=== PATIENT | female | born 1990 | race Caucasian/White ===

== ENCOUNTER 2016-06-14 22:21 | Inpatient (IN) | payer OTHER ==
[~2016-06-14] VITALS: Ht 157.5 cm; Wt 82.7 kg
[2016-06-14] MEDS ORDERED: IV NORMAL SALINE 1000ML BAG 1,000 ML IV SCH (22:45)
[2016-06-14] MEDS ORDERED: METOCLOPRAMIDE HCL 10 MG/2 ML VIAL. IV ONE (23:45)
[2016-06-14] MEDS ORDERED: MORPHINE SULFATE 4 MG/ML DISP.SYRIN. IV ONE (23:45)
[2016-06-14] MEDS ORDERED: FAMOTIDINE 20 MG/2 ML VIAL IVP ONE (23:45)
[2016-06-14 23:50] LABS: BASO # 0.1 x10^3/uL (0.0-0.2); BASO % 1 % (0-3); EOS % 1 % (0-3); HEMATOCRIT 39.6 % (36.0-47.0); HEMOGLOBIN 13.3 g/dL (12.0-15.5); LYMPH # 4.3 x10^3/uL (1.0-4.8); LYMPH % 30 % (24-48); MEAN CORPUSCULAR HEMOGLOBIN 29 pg (25-35); MEAN CORPUSCULAR HGB CONC 34 g/dL (31-37); MEAN CORPUSCULAR VOLUME 88 fL (79-100); MONO % 7 % (0-9); NEUT % 62 % (31-73); PLATELET COUNT 276 x10^3/uL (140-400); RED BLOOD COUNT 4.52 x10^6/uL (3.50-5.40); WHITE BLOOD COUNT 14.6 x10^3/uL (4.0-11.0)
[2016-06-14 23:58] LABS: CALCIUM 9.2 mg/dL (8.5-10.1); CREATININE 0.7 mg/dL (0.6-1.0); GFR 100.4; POTASSIUM 3.5 mmol/L (3.5-5.1)
[2016-06-15 00:04] LABS: ALBUMIN/GLOBULIN RATIO 1.3 (1.0-1.7); TOTAL BILIRUBIN 0.2 mg/dL (0.2-1.0); TOTAL PROTEIN 7.1 g/dL (6.4-8.2)
[2016-06-15] MEDS ORDERED: IOHEXOL 240 MG/ML 50ML VIAL. PO ONE (00:15)
[2016-06-15] MEDS ORDERED: IOHEXOL 300 MG/ML 75 ML VIAL IV ONE (00:15)
[2016-06-15] MEDS ORDERED: CONTRAST GIVEN MC PRN (00:15)
[2016-06-15 01:33] LABS: BILIRUBIN,URINE NEGATIVE (NEG); GLUCOSE,URINE NEGATIVE (NEG); NITRITE,URINE NEGATIVE (NEG); PH,URINE 7.5; PROTEIN,URINE NEGATIVE (NEG-TRACE)
--- NOTE | 2016-06-15 01:39 | RAD ---
CT abdomen and pelvis with contrast: Reason for examination: Generalized abdominal pain with nausea and vomiting. Helical images were obtained through the abdomen and pelvis with intravenous administration of 75 cc Omnipaque 300 and oral contrast. Reconstruction was performed in sagittal and coronal planes. Exposure: One or more of the following individualized dose reduction techniques were used for this examination: 1. Automated exposure control. 2. Adjustment of the mA and/or kV according to patient size. 3. Use of iterative reconstruction technique. The lung bases are clear. The heart size is normal with no pericardial effusion seen. No abnormalities seen in the liver, gallbladder, spleen, adrenal glands or pancreas. The abdominal aorta and inferior vena cava show no acute abnormalities. No abnormalities seen in the appendix. There is a large amount of fecal material in the right colon there is large amount of air in the sigmoid colon. The small intestinal tract shows some gaseous distension proximally without wall thickening. Distally the small intestinal tract is not distended. The kidneys show no renal masses, renal calculi, hydronephrosis or evidence of obstructive uropathy. There does appear to be a left renal vein stent present. No abnormalities seen in the bladder or vaginal cuff. No acute bony abnormalities evident. Impression: Gaseous distention in the proximal small intestinal tract without wall thickening or evidence of obstruction. No other focal abnormalities evident in the abdomen or pelvis. Electronically signed by: Roxy Segovia MD (Jun 15, 2016 01:37:43)
[2016-06-15 01:40] LABS: BACTERIA,URINE 0 /HPF (0-FEW); RBC,URINE TNTC /HPF (0-2); SQUAMOUS EPITHELIAL CELL,UR FEW /LPF
[2016-06-15] MEDS ORDERED: MORPHINE SULFATE 4 MG/ML DISP.SYRIN. IV ONE (01:45)
--- NOTE | 2016-06-15 02:09 | PHYS DOC ---
Past Medical History Past Medical History: Anxiety, Arthritis, Depression, Fibromyalgia, Migraines Additional Past Medical Histor: NUTCRACKER SYNDROME,FIBROMYLAGIA ADHD.DDD, KIDNEY LESION,RA Past Surgical History: Hysterectomy Additional Past Surgical Histo: NEUROPATHY,DIARRHEA,LIVER DISEASE Alcohol Use: None Drug Use: None Adult General Chief Complaint Chief Complaint: ABDOMINAL PAIN HPI HPI Patient is a 25 year old female who presents with multiple complaints. Patient reports that starting this morning she has had generalized abdominal pain. No clear inciting or mitigating factors. Pain is accompanied by nausea and vomiting , which she has had for the past 2 weeks intermittently. She does report some hematemesis today. She has some aching in her lower back. Lastly, has complaint of multiple small skin lesions that she has had off-and-on since November. These are getting worse. She spoke with her primary care physician cecy, was told to come to the emergency department for evaluation. Review of Systems Review of Systems Constitutional: Denies fever or chills Eyes: Denies change in visual acuity or eye pain HENT: Denies nasal congestion or sore throat Respiratory: Denies cough or shortness of breath Cardiovascular: Denies chest pain GI: General abdominal pain, nausea, vomiting, hematemesis. Denies bloody stools or diarrhea : Denies dysuria or hematuria Musculoskeletal: Low back ache. Integument: Scattered skin lesions Neurologic: Denies headache, focal weakness or sensory changes Current Medications Current Medications Current Medications Medications (Trade) Dose Ordered Sig/Miracle Start Time Stop Time Status Last Admin Dose Admin Famotidine (Pepcid) 20 mg 1X ONCE 06/14/16 23:45 06/14/16 23:46 DC 06/15/16 00:10 20 MG Info (Do NOT chart on this entry -- for MONITORING) 1 each PRN DAILY PRN 06/15/16 00:15 06/17/16 00:14 Iohexol (Omnipaque 240 Mg/ml) 30 ml 1X ONCE 06/15/16 00:15 06/15/16 00:16 DC 06/15/16 00:57 30 ML Iohexol (Omnipaque 300 Mg/ml) 75 ml 1X ONCE 06/15/16 00:15 06/15/16 00:16 DC 06/15/16 00:56 75 ML Metoclopramide HCl (Reglan) 10 mg 1X ONCE 06/14/16 23:45 06/14/16 23:46 DC 06/15/16 00:10 10 MG Morphine Sulfate 4 mg 1X ONCE 06/15/16 01:45 06/15/16 01:46 DC 06/15/16 01:55 4 MG Sodium Chloride (Iv Sodium Chloride 0.9% 1000ml Bag) 1,000 ml @ 1,000 mls/hr Q1H 06/14/16 22:45 06/14/16 23:45 DC 06/14/16 00:08 1,000 MLS/HR Allergies Allergies Allergies Coded Allergies Type Severity Reaction Last Updated Verified diphenhydramine Allergy Severe SHAKES 09/06/15 Yes prochlorperazine Allergy Severe SHAKES 09/06/15 Yes Physical Exam Physical Exam Constitutional: Well developed, well nourished, no acute distress, non-toxic appearance HENT: Normocephalic, atraumatic, bilateral external ears normal Eyes: EOMI, conjunctiva normal, no discharge Neck: Normal range of motion, no stridor Cardiovascular: Tachycardic, regular rhythm, no murmur Lungs & Thorax: Bilateral breath sounds clear to auscultation Abdomen: Bowel sounds normal, soft, non-distended, mild general TTP without guarding or rebound Skin: Warm, dry. Many scattered punctate wounds most prominent on extremities; no discharge noted Back: No tenderness, no deformity or skin lesion Extremities: No obvious deformity, no edema Neurologic: Alert and oriented X 3, no gross deficits noted Psychologic: Tearful, anxious Current Patient Data Vital Signs Vital Signs Date Time Temp Pulse Resp B/P Pulse Ox O2 Delivery O2 Flow Rate FiO2 06/15/16 01:29 88 18 122/58 94 Room Air 06/14/16 22:32 98.4 98.4 Lab Values Laboratory Tests Test 06/14/16 23:15 06/15/16 01:27 06/15/16 02:00 White Blood Count 14.6x10^3/uL (4.0-11.0) H Red Blood Count 4.52x10^6/uL (3.50-5.40) Hemoglobin 13.3g/dL (12.0-15.5) Hematocrit 39.6% (36.0-47.0) Mean Corpuscular Volume 88fL (79-100) Mean Corpuscular Hemoglobin 29pg (25-35) Mean Corpuscular Hemoglobin Concent 34g/dL (31-37) Red Cell Distribution Width 13.0% (11.5-14.5) Platelet Count 276x10^3/uL (140-400) Neutrophils (%) (Auto) 62% (31-73) Lymphocytes (%) (Auto) 30% (24-48) Monocytes (%) (Auto) 7% (0-9) Eosinophils (%) (Auto) 1% (0-3) Basophils (%) (Auto) 1% (0-3) Neutrophils # (Auto) 9.1x10^3uL (1.8-7.7) H Lymphocytes # (Auto) 4.3x10^3/uL (1.0-4.8) Monocytes # (Auto) 1.0x10^3/uL (0.0-1.1) Eosinophils # (Auto) 0.1x10^3/uL (0.0-0.7) Basophils # (Auto) 0.1x10^3/uL (0.0-0.2) Sodium Level 141mmol/L (136-145) Potassium Level 3.5mmol/L (3.5-5.1) Chloride Level 105mmol/L (98-107) Carbon Dioxide Level 27mmol/L (21-32) Anion Gap 9 (6-14) Blood Urea Nitrogen 11mg/dL (7-20) Creatinine 0.7mg/dL (0.6-1.0) Estimated GFR (Cockcroft-Gault) 100.4 BUN/Creatinine Ratio 16 (6-20) Glucose Level 97mg/dL (70-99) Calcium Level 9.2mg/dL (8.5-10.1) Total Bilirubin 0.2mg/dL (0.2-1.0) Aspartate Amino Transferase (AST) 24U/L (15-37) Alanine Aminotransferase (ALT) 26U/L (14-59) Alkaline Phosphatase 64U/L (46-116) Total Protein 7.1g/dL (6.4-8.2) Albumin 4.0g/dL (3.4-5.0) Albumin/Globulin Ratio 1.3 (1.0-1.7) Lipase 95U/L (73-393) Urine Collection Type Unknown Urine Color Yellow Urine Clarity Cloudy Urine pH 7.5 Urine Specific [place] 1.025 Urine Protein Negativemg/dL (NEG-TRACE) Urine Glucose (UA) Negativemg/dL (NEG) Urine Ketones (Stick) Negativemg/dL (NEG) Urine Blood Large (NEG) Urine Nitrite Negative (NEG) Urine Bilirubin Negative (NEG) Urine Urobilinogen Dipstick 1.0mg/dL (0.2 mg/dL) Urine Leukocyte Esterase Small (NEG) Urine RBC Tntc/HPF (0-2) Urine WBC 5-10/HPF (0-4) Urine Squamous Epithelial Cells Few/LPF Urine Amorphous Sediment Present/HPF Urine Bacteria 0/HPF (0-FEW) Urine Mucus Slight/LPF Lactic Acid Level 0.3mmol/L (0.4-2.0) L Laboratory Tests 06/14/16 23:15 Laboratory Tests 06/14/16 23:15 EKG EKG [] Radiology/Procedures Radiology/Procedures CT A/P: Impression: Gaseous distention in the proximal small intestinal tract without wall thickening or evidence of obstruction. No other focal abnormalities evident in the abdomen or pelvis. Course & Med Decision Making Course & Med Decision Making Pertinent Labs and Imaging studies reviewed. (See chart for details) Patient is 25-year-old female who presents with multiple complaints. Will obtain CT abdomen/pelvis, labs, UA to evaluate. IV fluids, pain meds, nausea meds ordered for relief of symptoms. I'm concerned about the possibility of infection from patient's multiple small scattered wounds. Imaging results as above. Labs notable for leukocytosis. Given this and tachycardia, we will give IV antibiotics. Discussed results with patient. Will admit under the care of Dr. Carter for further evaluation and treatment. Dragon Disclaimer Dragon Disclaimer This electronic medical record was generated, in whole or in part, using a voice recognition dictation system. Departure Departure Impression: Primary Impression: Wounds, multiple Additional Impressions: Abdominal pain Leukocytosis Disposition: ADMITTED INPATIENT Admitting Physician: Shasta Carter Condition: STABLE Referrals: YURI VARGAS MD (PCP) Problem Qualifiers ROLY WANG MD Jun 15, 2016 02:09
[2016-06-15] MEDS ORDERED: ACETAMINOPHEN 325 MG TABLET. PO PRN (02:15)
[2016-06-15] MEDS ORDERED: ONDANSETRON PF 4 MG/2 ML VIAL. IV PRN (02:15)
[2016-06-15] MEDS ORDERED: VANCOMYCIN 2 GM in IV NORMAL SALINE 500ML BAG 500 ML IV ONE (02:30)
[2016-06-15] MEDS ORDERED: VANCOMYCIN PER PHARMACY MC PRN (02:30)
[2016-06-15 03:10] VITALS: BP 113/72
[2016-06-15] MEDS: MORPHINE SULFATE 4 MG/ML DISP.SYRIN. IV PRN ×2 (05:06→14:10)
[2016-06-15] MEDS ORDERED: ZOLP10TA4 PO (05:55)
[2016-06-15] MEDS ORDERED: DEXT10TA23 PO (05:55)
[2016-06-15] MEDS ORDERED: ALPR1TAB6 PO (05:55)
[2016-06-15] MEDS ORDERED: ONDA4TAB12 PO (05:55)
[2016-06-15] MEDS ORDERED: TRAM50TA PO (05:55)
[2016-06-15] MEDS ORDERED: HYDR-2672 PO (05:55)
[2016-06-15] MEDS ORDERED: PREG150C PO (05:55)
[2016-06-15] MEDS ORDERED: FLUO20CA8 PO (05:55)
[2016-06-15] MEDS ORDERED: PROVENTIL HFA6.7 GM IH (05:55)
[2016-06-15] MEDS ORDERED: TRAZ100T12 PO (05:55)
[2016-06-15 07:00] VITALS: BP 105/70
[2016-06-15] MEDS: IV NORMAL SALINE 1000ML BAG 1,000 ML IV SCH ×3 (09:30→22:24)
--- NOTE | 2016-06-15 09:35 | PDOC1 ---
History and Physical Date of Admission Date of Admission DATE: 06/15/16 TIME: 09:25 History of Present Illness History of Present Illness Ms. Campuzano, is a 25 year old female, I was told admitted for skin rash./ Her asks why we aren;t addressing the vomiting of blood X2 and Abdominal pain.. She is lethargic and tired, arouseable, but wanted him to provide history. Skin rash has worsened, mult pustular lesions that appear extensive acneiform on the face, but extensive crusted lesions on lateral thighs, R>L, and painful, some skin lesions for months, but markedly worse Abd pain for 2 weeks, pain 7/10, some vomiting, has vomited blood X2, yesterday Past Medical History GI: GERD Hepatobiliary: Other (fatty liver) Psych: Anxiety Musculoskeletal: low back pain, Osteoarthritis, Other (DJD) Rheumatologic: Fibromyalgia Renal/: Acute renal failure ( W/ Left renal vein stent) Endocrine: No pertinent hx Dermatology: Rash Family History Family History: Family History Unknown Social History Smoke: No ALCOHOL: none Drugs: None Current Problem List Problem List Problems Medical Problems: (1) Abdominal pain Status: Acute (2) Leukocytosis Status: Acute (3) Leukocytosis Status: Acute (4) Multiple wounds of skin Status: Acute (5) Wounds, multiple Status: Acute Problems: Current Medications Current Medications Current Medications Sodium Chloride (Iv Sodium Chloride 0.9% 1000ml Bag) 1,000 ml @ 1,000 mls/hr Q1H IV Last administered on 06/14/16 00:08; Start 06/14/16 at 22:45; Stop at 23:45; Status DC Famotidine (Pepcid) 20 mg 1X ONCE IVP Last administered on 06/15/16 00:10; Start 06/14/16 at 23:45; Stop 06/14/16 at 23:46; Status DC Metoclopramide HCl (Reglan) 10 mg 1X ONCE IV Last administered on 06/15/16 00 :10; Start 06/14/16 at 23:45; Stop 06/14/16 at 23:46; Status DC Morphine Sulfate 4 mg 1X ONCE IV Last administered on 06/15/16 00:09; Start 06/14/16 at 23:45; Stop 06/14/16 at 23:46; Status DC Iohexol (Omnipaque 240 Mg/ml) 30 ml 1X ONCE PO Last administered on 06/15/16 00:57; Start 06/15/16 at 00:15; Stop 06/15/16 at 00:16; Status DC Iohexol (Omnipaque 300 Mg/ml) 75 ml 1X ONCE IV Last administered on 06/15/16 00:56; Start 06/15/16 at 00:15; Stop 06/15/16 at 00:16; Status DC Info (Do NOT chart on this entry -- for MONITORING) 1 each PRN DAILY PRN MC SEE COMMENTS; Start 06/15/16 at 00:15; Stop 06/17/16 at 00:14 Morphine Sulfate 4 mg 1X ONCE IV Last administered on 06/15/16 01:55; Start 06/15/16 at 01:45; Stop 06/15/16 at 01:46; Status DC Vancomycin HCl (Vanco Per Pharmacy) 1 each PRN DAILY PRN MC SEE COMMENTS Last administered on 06/15/16 03:36; Start 06/15/16 at 02:30 Ondansetron HCl (Zofran) 4 mg PRN Q8HRS PRN IV NAUSEA/VOMITING; Start 06/15/16 at 02:15; Stop 06/16/16 at 02:14 Morphine Sulfate 4 mg PRN Q2HR PRN IV PAIN Last administered on 06/15/16 05:06 ; Start 06/15/16 at 02:15; Stop 06/16/16 at 02:14 Acetaminophen 650 mg 650 mg PRN Q4HRS PRN PO FEVER; Start 06/15/16 at 02:15; Stop 06/16/16 at 02:14 Vancomycin HCl 2 gm/Sodium Chloride 500 ml @ 250 mls/hr 1X ONCE IV Last administered on 06/15/16 02:15; Start 06/15/16 at 02:30; Stop 06/15/16 at 04:29 ; Status DC Vancomycin HCl/ Sodium Chloride (Iv Sodium Chloride 0.9% 250ml) 250 ml @ 167 mls/hr Q8H IV ; Start 06/15/16 at 12:00 Vancomycin HCl 1 each 1X ONCE MC ; Start 06/16/16 at 03:30; Stop 06/16/16 at 03 :31 Alprazolam (Xanax) 1 mg BID PO ; Start 06/15/16 at 10:00 Fluoxetine HCl (Prozac) 20 mg DAILY PO ; Start 06/15/16 at 10:00 Acetaminophen/ Hydrocodone Bitart (Lortab 10/325) 1 tab PRN Q6HRS PRN PO PAIN MILD TO MOD; Start 06/15/16 at 09:15 Ondansetron HCl (Zofran Odt) 4 mg Q8HRS PRN PO nausea 1ST CHOICE; Start at 09:15 Tramadol HCl (Ultram) 50 mg PRN Q6HRS PRN PO pain; Start 06/15/16 at 09:15 Trazodone HCl (Desyrel) 100 mg QHS PO ; Start 06/15/16 at 21:00 Non-Formulary Medication 1 puff PRN Q4HRS PRN IH WHEEZING; Start 06/15/16 at 09 :15; Status UNV Non-Formulary Medication 10 mg DAILY PO ; Start 06/16/16 at 09:00; Status UNV Pregabalin (Lyrica) 150 mg BID PO ; Start 06/15/16 at 10:00 Zolpidem Tartrate 5 mg 5 mg PRN QHS PRN PO INSOMNIA; Start 06/15/16 at 09:30 Pantoprazole Sodium/Sodium Chloride (Protonix Iv/Iv Sodium Chloride 0.9% 100ml) 100 ml @ 10 mls/hr Q10H IV ; Start 06/15/16 at 09:30; Status UNV Active Scripts Active Reported Zolpidem Tartrate 10 Mg Tablet 1 Tab PO QHS Trazodone Hcl 100 Mg Tablet 1 Tab PO QHS Tramadol Hcl 50 Mg Tablet 1 Tab PO PRN Q6HRS Adderall 10 Mg Tablet (Dextroamphetamine/Amphetamine) 10 Mg Tablet 10 Mg PO DAILY Ondansetron Odt (Ondansetron) 4 Mg Tab.rapdis 1 Tab PO PRN Q6-8HRS Lyrica (Pregabalin) 150 Mg Capsule 1 Cap PO BID Hydrocodone-Apap 10-325 (Hydrocodone Bit/Acetaminophen) 1 Each Tablet 1 Tab PO PRN Q6HRS PRN Fluoxetine Hcl 20 Mg Capsule 1 Cap PO DAILY Alprazolam 1 Mg Tablet 1 Tab PO BID Proventil Hfa Inhaler (Albuterol Sulfate) 6.7 Gm Hfa.aer.ad 1 Puff IH PRN Q4HRS PRN Allergies Allergies: Coded Allergies: diphenhydramine (Verified Adverse Reaction, Intermediate, SHAKES, 06/15/16) prochlorperazine (Verified Adverse Reaction, Intermediate, SHAKES, 06/15/16 ) ROS General: YES: Appetite, Fatigue, Malaise, No: Chills, Night Sweats, Other PSYCHOLOGICAL ROS: YES: Anxiety, No: Behavioral Disorder, Concentration difficultie, Decreased libido, Depression, Disorientation, Hallucinations, Hostility, Irritablity, Memory difficulties, Mood Swings, Obsessive thoughts, Other, Physical abuse, Sexual abuse, Sleep disturbances, Suicidal ideation Eyes: No Blurry vision, No Decreased vision, No Double vision, No Dry eyes, No Excessive tearing, No Eye Pain, No Itchy Eyes, No Loss of vision, No Other, No Photophobia, No Scotomata, No Uses contacts, No Uses glasses HEENT: YES: Heacaches Respiratory: No: Cough, Hemoptysis, Orthopnea, Other, Pleuritic Pain, SOB with excertion, Shortness of breath, Sputum Changes, Stridor, Tachypnea, Wheezing Cardiovascular: No Chest Pain, No Edema, No Lt Headedness, No Orthopnea, No Other, No Palpitations, No Paroxysmal Noc. Dyspnea Gastrointestinal: Yes Abdominal Pain (hematemesis), Yes Nausea, Yes Vomiting Genitourinary: No , No , No , No , No , No , No , No Discharge, No Dysuria, No Flank Pain, No Frequency, No Hematuria, No Incontinence, No Other, No Pain, No Retention, No Urgency Musculoskeletal: No Gait Disturbance, No Joint Pain, No Joint Stiffness, No Joint Swelling, No Muscle Pain, No Muscular Weakness, No Other, No Pain In:, No Swelling In: Neurological: No Behavorial Changes, No Bowel/Bladder ControlChng, No Confusion , No Dizziness, No Gait Disturbance, No Headaches, No Impaired Coord/balance, No Memory Loss, No Numbness/Tingling, No Other, No Seizures, No Speech Problems , No Tremors, No Visual Changes, No Weakness Skin: Yes Acne, Yes Dry Skin, Yes Rash, Yes Skin Lesion Changes, No Eczema, No Hair Changes, No Lumps, No Mole Changes, No Mottling, No Nail Changes, No Other, No Pruritus Physical Exam General: Cooperative (lethargic but responsds), mild distress (but lethargic) HEENT: Atraumatic, PERRLA, EOMI, Mucous membr. moist/pink Lungs: Clear to auscultation Heart: S1S2, RRR, no murmurs Abdomen: Normal bowel sounds, Soft Rectal Exam: not examined Extremities: No clubbing, No edema, Normal pulses Skin: Other (diffuse pustular lesions, have been present for some time, but markedly worse and on bilateral thighs primarily, crusted, and painful) Psych/Mental Status: Other (flat and withdrawn) Vitals Vitals Vital Signs Date Time Temp Pulse Resp B/P Pulse Ox O2 Delivery O2 Flow Rate FiO2 06/15/16 07:00 97.9 68 20 105/70 98 Room Air 97.9 Labs Labs Laboratory Tests Test 06/14/16 23:15 06/15/16 01:27 06/15/16 02:00 White Blood Count 14.6x10^3/uL (4.0-11.0) Red Blood Count 4.52x10^6/uL (3.50-5.40) Hemoglobin 13.3g/dL (12.0-15.5) Hematocrit 39.6% (36.0-47.0) Mean Corpuscular Volume 88fL (79-100) Mean Corpuscular Hemoglobin 29pg (25-35) Mean Corpuscular Hemoglobin Concent 34g/dL (31-37) Red Cell Distribution Width 13.0% (11.5-14.5) Platelet Count 276x10^3/uL (140-400) Neutrophils (%) (Auto) 62% (31-73) Lymphocytes (%) (Auto) 30% (24-48) Monocytes (%) (Auto) 7% (0-9) Eosinophils (%) (Auto) 1% (0-3) Basophils (%) (Auto) 1% (0-3) Neutrophils # (Auto) 9.1x10^3uL (1.8-7.7) Lymphocytes # (Auto) 4.3x10^3/uL (1.0-4.8) Monocytes # (Auto) 1.0x10^3/uL (0.0-1.1) Eosinophils # (Auto) 0.1x10^3/uL (0.0-0.7) Basophils # (Auto) 0.1x10^3/uL (0.0-0.2) Sodium Level 141mmol/L (136-145) Potassium Level 3.5mmol/L (3.5-5.1) Chloride Level 105mmol/L (98-107) Carbon Dioxide Level 27mmol/L (21-32) Anion Gap 9 (6-14) Blood Urea Nitrogen 11mg/dL (7-20) Creatinine 0.7mg/dL (0.6-1.0) Estimated GFR (Cockcroft-Gault) 100.4 BUN/Creatinine Ratio 16 (6-20) Glucose Level 97mg/dL (70-99) Calcium Level 9.2mg/dL (8.5-10.1) Total Bilirubin 0.2mg/dL (0.2-1.0) Aspartate Amino Transf (AST/SGOT) 24U/L (15-37) Alanine Aminotransferase (ALT/SGPT) 26U/L (14-59) Alkaline Phosphatase 64U/L (46-116) Total Protein 7.1g/dL (6.4-8.2) Albumin 4.0g/dL (3.4-5.0) Albumin/Globulin Ratio 1.3 (1.0-1.7) Lipase 95U/L (73-393) Urine Collection Type Unknown Urine Color Yellow Urine Clarity Cloudy Urine pH 7.5 Urine Specific [place] 1.025 Urine Protein Negativemg/dL (NEG-TRACE) Urine Glucose (UA) Negativemg/dL (NEG) Urine Ketones (Stick) Negativemg/dL (NEG) Urine Blood Large (NEG) Urine Nitrite Negative (NEG) Urine Bilirubin Negative (NEG) Urine Urobilinogen Dipstick 1.0mg/dL (0.2 mg/dL) Urine Leukocyte Esterase Small (NEG) Urine RBC Tntc/HPF (0-2) Urine WBC 5-10/HPF (0-4) Urine Squamous Epithelial Cells Few/LPF Urine Amorphous Sediment Present/HPF Urine Bacteria 0/HPF (0-FEW) Urine Mucus Slight/LPF Lactic Acid Level 0.3mmol/L (0.4-2.0) Laboratory Tests Test 06/14/16 23:15 06/15/16 01:27 06/15/16 02:00 White Blood Count 14.6x10^3/uL (4.0-11.0) Red Blood Count 4.52x10^6/uL (3.50-5.40) Hemoglobin 13.3g/dL (12.0-15.5) Hematocrit 39.6% (36.0-47.0) Mean Corpuscular Volume 88fL (79-100) Mean Corpuscular Hemoglobin 29pg (25-35) Mean Corpuscular Hemoglobin Concent 34g/dL (31-37) Red Cell Distribution Width 13.0% (11.5-14.5) Platelet Count 276x10^3/uL (140-400) Neutrophils (%) (Auto) 62% (31-73) Lymphocytes (%) (Auto) 30% (24-48) Monocytes (%) (Auto) 7% (0-9) Eosinophils (%) (Auto) 1% (0-3) Basophils (%) (Auto) 1% (0-3) Neutrophils # (Auto) 9.1x10^3uL (1.8-7.7) Lymphocytes # (Auto) 4.3x10^3/uL (1.0-4.8) Monocytes # (Auto) 1.0x10^3/uL (0.0-1.1) Eosinophils # (Auto) 0.1x10^3/uL (0.0-0.7) Basophils # (Auto) 0.1x10^3/uL (0.0-0.2) Sodium Level 141mmol/L (136-145) Potassium Level 3.5mmol/L (3.5-5.1) Chloride Level 105mmol/L (98-107) Carbon Dioxide Level 27mmol/L (21-32) Anion Gap 9 (6-14) Blood Urea Nitrogen 11mg/dL (7-20) Creatinine 0.7mg/dL (0.6-1.0) Estimated GFR (Cockcroft-Gault) 100.4 BUN/Creatinine Ratio 16 (6-20) Glucose Level 97mg/dL (70-99) Calcium Level 9.2mg/dL (8.5-10.1) Total Bilirubin 0.2mg/dL (0.2-1.0) Aspartate Amino Transf (AST/SGOT) 24U/L (15-37) Alanine Aminotransferase (ALT/SGPT) 26U/L (14-59) Alkaline Phosphatase 64U/L (46-116) Total Protein 7.1g/dL (6.4-8.2) Albumin 4.0g/dL (3.4-5.0) Albumin/Globulin Ratio 1.3 (1.0-1.7) Lipase 95U/L (73-393) Urine Collection Type Unknown Urine Color Yellow Urine Clarity Cloudy Urine pH 7.5 Urine Specific [place] 1.025 Urine Protein Negativemg/dL (NEG-TRACE) Urine Glucose (UA) Negativemg/dL (NEG) Urine Ketones (Stick) Negativemg/dL (NEG) Urine Blood Large (NEG) Urine Nitrite Negative (NEG) Urine Bilirubin Negative (NEG) Urine Urobilinogen Dipstick 1.0mg/dL (0.2 mg/dL) Urine Leukocyte Esterase Small (NEG) Urine RBC Tntc/HPF (0-2) Urine WBC 5-10/HPF (0-4) Urine Squamous Epithelial Cells Few/LPF Urine Amorphous Sediment Present/HPF Urine Bacteria 0/HPF (0-FEW) Urine Mucus Slight/LPF Lactic Acid Level 0.3mmol/L (0.4-2.0) VTE Prophylaxis Ordered VTE Prophylaxis Devices: Yes VTE Pharmacological Prophylaxi: Contraindicated Assessment/Plan Assessment/Plan Abd pain and hematemesis without anemia, recheck freq. CBC, consult GI, PPI gtt, npo, Diffuse pustular rash, differential is wide, now new meds, worse over long period of time with recent exac. Vancomycin started, unsure of dx, consult ID and derm Leukocytosis, SIRS, fibromyalgia, diffuse pain anxiety disorder w/ insomnia fatty liver disease Hx stent to left renal vein KARINA BAE MD Jun 15, 2016 09:35
[2016-06-15 10:02] LABS: BASO % 1 % (0-3); EOS % 1 % (0-3); HEMATOCRIT 35.5 % (36.0-47.0); HEMOGLOBIN 12.1 g/dL (12.0-15.5); LYMPH # 3.2 x10^3/uL (1.0-4.8); LYMPH % 42 % (24-48); MEAN CORPUSCULAR HEMOGLOBIN 30 pg (25-35); MEAN CORPUSCULAR HGB CONC 34 g/dL (31-37); MEAN CORPUSCULAR VOLUME 87 fL (79-100); MONO % 7 % (0-9); NEUT % 50 % (31-73); PLATELET COUNT 239 x10^3/uL (140-400); RED BLOOD COUNT 4.06 x10^6/uL (3.50-5.40); RED CELL DISTRIBUTION WIDTH 12.9 % (11.5-14.5); WHITE BLOOD COUNT 7.7 x10^3/uL (4.0-11.0)
[2016-06-15 10:11] LABS: BARBITURATES NEG (NEG); BENZODIAZEPINES POS (NEG); CANNABINOIDS POS (NEG); COCAINE NEG (NEG); METHADONE NEG (NEG); OPIATES POS (NEG); PHENCYCLIDINE NEG (NEG)
[2016-06-15 10:15] LABS: CALCIUM 8.4 mg/dL (8.5-10.1); CREATININE 0.5 mg/dL (0.6-1.0); POTASSIUM 3.9 mmol/L (3.5-5.1)
[2016-06-15 10:20] LABS: ETHANOL, URINE NEG (NEG)
[2016-06-15] MEDS: ALPRAZOLAM 1 MG TABLET PO SCH ×2 (10:27→22:23)
[2016-06-15] MEDS: FLUOXETINE HCL 20 MG CAPSULE PO SCH (10:27)
[2016-06-15] MEDS: PREGABALIN 75 MG CAPSULE PO SCH ×2 (10:28→22:21)
[2016-06-15] MEDS: PANTOPRAZOLE SODIUM IV 80 MG in IV NORMAL SALINE 100ML 100 ML IV SCH ×2 (10:29→23:39)
[2016-06-15 11:00] VITALS: BP 93/60
[2016-06-15] MEDS ORDERED: VANCOMYCIN 1.25 GM in IV NORMAL SALINE 250ML 250 ML IV SCH (12:00)
[2016-06-15] MEDS: HYDROCODONE/APAP 10/325 TABLET. PO PRN (12:15)
--- NOTE | 2016-06-15 12:17 | PDOC2 ---
GI CONSULT Reason For Consult: Vomiting blood HPI: HPI: 25 y/o female admitted through the ER overnight. She was evaluated there w/ a few complaints. ID is following for rash. Additional concern of vomiting blood, hence GI consult. She reports 3 months of sporadic episodes of vomiting (sometimes in the middle of the night) which are triggered by feeling weak and unrelated to eating. Emesis is usually "mucousy" and occasionally has a tinge of reddish/pinkish color, although once or twice has looked dark or bright red. After some thought , she says this last occurred (mucous w/ red tinge) last night. She has been eating normally. She is seen at [facility] and has taken phentermine (now off of this), reports some decrease in appetite and weight loss as a result. She has rare abdominal discomfort; denies triggers. Denies reflux and heartburn. Vaguely describes occasional "throat tightness" w / swallowing liquids, but not dysphagia or odynophagia. No previous EGD. Takes Naproxen occasionally. Possible h/o RA w/ plans to see a new nut sorter. She also apparently has a h/o occasional bloody (red) diarrhea, present for 3-4 months. She again had to think about it for awhile, but believes this also happened yesterday. She's not sure regarding the amount of blood. It seems stools change in consistency somewhat. No previous colonoscopy. Believes rash present since Nov or Dec 2016. Doesn't itch, but is painful. PMH: PMH: HTN, asthma, SAUNDERS, Nutcracker syndrome w/ permanent renal stent, pineal gland mass, arthritis - ?rheumatoid/osteo, anxiety/depression, ADHD, peripheral neuropathy, ?TANIYA, hysterectomy, C section FH: Family History: Cancer (colon, pancreas (not first degree relatives)) Social History: Smoke: <1 pack per day ALCOHOL: rare Drugs: None ROS: GEN: Denies fevers, chills, sweats HEENT: Denies blurred vision, sore throat CV: Denies chest pain RESP: Denies shortness of air, cough GI: Per HPI : Denies hematuria, dysuria ENDO: +weight loss NEURO: Denies confusion, dizziness MSK: +weakness +joint pain SKIN: +rash VItals: Vitals: Vital Signs Date Time Temp Pulse Resp B/P Pulse Ox O2 Delivery O2 Flow Rate FiO2 06/15/16 11:00 98.1 68 16 93/60 93 Room Air 98.1 Labs: Labs: Laboratory Tests Test 06/14/16 23:15 06/15/16 01:27 06/15/16 02:00 06/15/16 09:45 White Blood Count 14.6x10^3/uL (4.0-11.0) 7.7x10^3/uL (4.0-11.0) Red Blood Count 4.52x10^6/uL (3.50-5.40) 4.06x10^6/uL (3.50-5.40) Hemoglobin 13.3g/dL (12.0-15.5) 12.1g/dL (12.0-15.5) Hematocrit 39.6% (36.0-47.0) 35.5% (36.0-47.0) Mean Corpuscular Volume 88fL (79-100) 87fL (79-100) Mean Corpuscular Hemoglobin 29pg (25-35) 30pg (25-35) Mean Corpuscular Hemoglobin Concent 34g/dL (31-37) 34g/dL (31-37) Red Cell Distribution Width 13.0% (11.5-14.5) 12.9% (11.5-14.5) Platelet Count 276x10^3/uL (140-400) 239x10^3/uL (140-400) Neutrophils (%) (Auto) 62% (31-73) 50% (31-73) Lymphocytes (%) (Auto) 30% (24-48) 42% (24-48) Monocytes (%) (Auto) 7% (0-9) 7% (0-9) Eosinophils (%) (Auto) 1% (0-3) 1% (0-3) Basophils (%) (Auto) 1% (0-3) 1% (0-3) Neutrophils # (Auto) 9.1x10^3uL (1.8-7.7) 3.8x10^3uL (1.8-7.7) Lymphocytes # (Auto) 4.3x10^3/uL (1.0-4.8) 3.2x10^3/uL (1.0-4.8) Monocytes # (Auto) 1.0x10^3/uL (0.0-1.1) 0.5x10^3/uL (0.0-1.1) Eosinophils # (Auto) 0.1x10^3/uL (0.0-0.7) 0.1x10^3/uL (0.0-0.7) Basophils # (Auto) 0.1x10^3/uL (0.0-0.2) 0.0x10^3/uL (0.0-0.2) Sodium Level 141mmol/L (136-145) 143mmol/L (136-145) Potassium Level 3.5mmol/L (3.5-5.1) 3.9mmol/L (3.5-5.1) Chloride Level 105mmol/L (98-107) 110mmol/L (98-107) Carbon Dioxide Level 27mmol/L (21-32) 25mmol/L (21-32) Anion Gap 9 (6-14) 8 (6-14) Blood Urea Nitrogen 11mg/dL (7-20) 8mg/dL (7-20) Creatinine 0.7mg/dL (0.6-1.0) 0.5mg/dL (0.6-1.0) Estimated GFR (Cockcroft-Gault) 100.4 148.0 BUN/Creatinine Ratio 16 (6-20) Glucose Level 97mg/dL (70-99) 88mg/dL (70-99) Calcium Level 9.2mg/dL (8.5-10.1) 8.4mg/dL (8.5-10.1) Total Bilirubin 0.2mg/dL (0.2-1.0) Aspartate Amino Transf (AST/SGOT) 24U/L (15-37) Alanine Aminotransferase (ALT/SGPT) 26U/L (14-59) Alkaline Phosphatase 64U/L (46-116) Total Protein 7.1g/dL (6.4-8.2) Albumin 4.0g/dL (3.4-5.0) Albumin/Globulin Ratio 1.3 (1.0-1.7) Lipase 95U/L (73-393) Urine Collection Type Unknown Urine Color Yellow Urine Clarity Cloudy Urine pH 7.5 Urine Specific [place] 1.025 Urine Protein Negativemg/dL (NEG-TRACE) Urine Glucose (UA) Negativemg/dL (NEG) Urine Ketones (Stick) Negativemg/dL (NEG) Urine Blood Large (NEG) Urine Nitrite Negative (NEG) Urine Bilirubin Negative (NEG) Urine Urobilinogen Dipstick 1.0mg/dL (0.2 mg/dL) Urine Leukocyte Esterase Small (NEG) Urine RBC Tntc/HPF (0-2) Urine WBC 5-10/HPF (0-4) Urine Squamous Epithelial Cells Few/LPF Urine Amorphous Sediment Present/HPF Urine Bacteria 0/HPF (0-FEW) Urine Mucus Slight/LPF Urine Opiates Screen Pos (NEG) Urine Methadone Screen Neg (NEG) Urine Barbiturates Neg (NEG) Urine Phencyclidine Screen Neg (NEG) Urine Amphetamine/Methamphetamine Pos (NEG) Urine Benzodiazepines Screen Pos (NEG) Urine Cocaine Screen Neg (NEG) Urine Cannabinoids Screen Pos (NEG) Urine Ethyl Alcohol Neg (NEG) Lactic Acid Level 0.3mmol/L (0.4-2.0) Allergies: Coded Allergies: diphenhydramine (Verified Adverse Reaction, Intermediate, SHAKES, 06/15/16) prochlorperazine (Verified Adverse Reaction, Intermediate, SHAKES, 06/15/16 ) Medications: Current Medications Medications (Trade) Dose Ordered Sig/Miracle Route PRN Reason Start Time Stop Time Status Last Admin Dose Admin Sodium Chloride (Iv Sodium Chloride 0.9% 1000ml Bag) 1,000 ml @ 1,000 mls/hr Q1H IV 06/14/16 22:45 06/14/16 23:45 DC 06/14/16 00:08 Famotidine (Pepcid) 20 mg 1X ONCE IVP 06/14/16 23:45 06/14/16 23:46 DC 06/15/16 00:10 Metoclopramide HCl (Reglan) 10 mg 1X ONCE IV 06/14/16 23:45 06/14/16 23:46 DC 06/15/16 00:10 Morphine Sulfate 4 mg 1X ONCE IV 06/14/16 23:45 06/14/16 23:46 DC 06/15/16 00:09 Iohexol (Omnipaque 240 Mg/ml) 30 ml 1X ONCE PO 06/15/16 00:15 06/15/16 00:16 DC 06/15/16 00:57 Iohexol (Omnipaque 300 Mg/ml) 75 ml 1X ONCE IV 06/15/16 00:15 06/15/16 00:16 DC 06/15/16 00:56 Morphine Sulfate 4 mg 1X ONCE IV 06/15/16 01:45 06/15/16 01:46 DC 06/15/16 01:55 Vancomycin HCl (Vanco Per Pharmacy) 1 each PRN DAILY PRN MC SEE COMMENTS 06/15/16 02:30 06/15/16 09:59 DC 06/15/16 03:36 Morphine Sulfate 4 mg 4 mg PRN Q2HR PRN IV PAIN 06/15/16 02:15 06/16/16 02:14 06/15/16 05:06 Vancomycin HCl/ Sodium Chloride (Iv Sodium Chloride 0.9% 500ml Bag) 500 ml @ 250 mls/hr 1X ONCE IV 06/15/16 02:30 06/15/16 09:59 DC 06/15/16 02:15 Alprazolam (Xanax) 1 mg BID PO 06/15/16 10:00 06/15/16 10:27 Fluoxetine HCl (Prozac) 20 mg DAILY PO 06/15/16 10:00 06/15/16 10:27 Pregabalin 150 mg 150 mg BID PO 06/15/16 10:00 06/15/16 10:28 Pantoprazole Sodium 80 mg/ Sodium Chloride 100 ml @ 10 mls/hr Q10H IV 06/15/16 10:00 06/15/16 10:29 Sodium Chloride (Iv Sodium Chloride 0.9% 1000ml Bag) 1,000 ml @ 150 mls/hr Q6H40M IV 06/15/16 09:30 06/15/16 09:30 Imaging: Imaging: CT A/P w/ oral and IV contrast Impression: Gaseous distention in the proximal small intestinal tract without wall thickening or evidence of obstruction. No other focal abnormalities evident in the abdomen or pelvis. PE: GEN: NAD HEENT: Atraumatic, PERRL LUNGS: CTAB HEART: RRR ABD: NABS, S/ND, mild epigastric discomfort EXTREMITY: No edema SKIN: cheeks, arms, legs - small crusted lesions NEURO/PSYCH: A & O 3 OTHER: "significant other" Adam present A/P: A/P: Vomiting, ?hematemesis, blood in stool -a few months of intermittent/random vomiting, occasionally w/ tinge of blood -has lost weight intentionally, eating okay -also random occurrences of "bloody diarrhea" -tells me rare abd pain, no other GI symptoms -is on PPI drip here Skin lesions -ID following -- With normal Hgb and confusing symptoms, would observe for vomiting, diarrhea, bleeding at this point. Probably could change to PO PPI and consider outpatient workup. Dr. Schultz will see this afternoon. MIKAELA PRO Jun 15, 2016 12:17
[2016-06-15 13:23] LABS: HEMATOCRIT 35.8 % (36.0-47.0); HEMOGLOBIN 11.9 g/dL (12.0-15.5); RED BLOOD COUNT 4.03 x10^6/uL (3.50-5.40); RED CELL DISTRIBUTION WIDTH 12.9 % (11.5-14.5); WHITE BLOOD COUNT 7.9 x10^3/uL (4.0-11.0)
[2016-06-15] MEDS: DIPHENHYDRAMINE/ZINC ACETATE 2%/0.1% TOPICAL CREAM 28GM TUBE. TP SCH ×2 (14:10→22:23)
[2016-06-15 15:00] VITALS: BP 96/53
[2016-06-15 19:05] VITALS: BP 101/60
[2016-06-15] MEDS: traZODone 100 MG TABLET. PO SCH (21:00)
[2016-06-15] MEDS: ALBUTEROL SULFATE 2.5 MG/3 ML NEBU. NEB PRN (21:23)
[2016-06-15] MEDS: ZOLPIDEM 5 MG TABLET. PO PRN (22:21)
[2016-06-15] MEDS: TRAMADOL 50 MG TABLET. PO PRN (22:22)
[2016-06-15 23:05] VITALS: BP 102/60
[2016-06-15] MEDS ORDERED: KETOROLAC TROMETHAMINE 30 MG/ML SYRINGE. IV PRN (23:30)
[2016-06-15] MEDS: OXYCODONE/APAP 10/325 TABLET. PO PRN (23:39)
--- NOTE | 2016-06-16 01:12 | CONS ---
DATE OF CONSULTATION: 06/15/2016 REQUESTING PHYSICIAN: Dr. Carter. REASON FOR CONSULTATION: Rash. HISTORY OF PRESENT ILLNESS: This is a 25-year-old female who came in with vomiting blood, was the reason for admission. The patient happened to have rash that has been going on for 2 months, hence my consultation. The patient denies any fever, denies any chest pain, shortness of breath. The patient has been admitted for further management. The patient does have a history or diagnosis of SAUNDERS. PAST MEDICAL HISTORY: Positive for SAUNDERS. The patient also has a history of fibromyalgia, anxiety disorder, osteoarthritis, she says, rheumatoid arthritis. Has had renal vein stenting done or arterial stenting, she does not know. SOCIAL HISTORY: Negative for smoking, alcohol, illicit drug use. ALLERGIES: LISTED ALLERGIC TO DIPHENHYDRAMINE AND PROCHLORPERAZINE. CURRENT MEDICATIONS: Reviewed. The patient is started on vancomycin. All other medications reviewed. REVIEW OF SYSTEMS: As per HPI, all other systems reviewed are negative. PHYSICAL EXAMINATION: GENERAL: Awake female, not in distress. VITAL SIGNS: Stable, afebrile. HEENT: NAD. NECK: Supple, no JVP, no lymphadenopathy. LUNGS: Clear. HEART: S1, S2 regular. ABDOMEN: Benign. EXTREMITIES: No edema or cyanosis. SKIN: The patient does have multiple areas of punctate erythematous rash, which probably looks like scratch cote everywhere. In fact, interestingly, the patient does not have any, absolutely no rash on the back. NEUROLOGICAL: The patient is neurologically intact. LABORATORY DATA: White count is 14,000. BUN and creatinine is normal. Urinalysis showed too numerous to count rbc, 5-[address] of the abdomen and pelvis was unremarkable. IMPRESSION: 1. Vomiting blood. 2. Rash for 2 months or so. It appears to me that it is anxiety related scratching causing the rash. I did not see any evidence of infection. Also, the fact that she does not have any rash on the back, although Dermatology opinion is pending. 3. Nonalcoholic steatohepatitis. RECOMMENDATIONS: I do not see the need for any antibiotics or vancomycin. Supportive care and we will wait for the Derm opinion on the rash. We will continue to follow periodically. Thank you very much, Dr. Carter for giving me the opportunity to participate in this patient's care. RENAE PEREA MD DR: Antione JOB#: [id number] / [id number]
[2016-06-16] MEDS: HYDROCODONE/APAP 10/325 TABLET. PO PRN (02:24)
[2016-06-16 03:05] VITALS: BP 113/65
[2016-06-16] MEDS: TRAMADOL 50 MG TABLET. PO PRN (04:44)
[2016-06-16] MEDS: MORPHINE SULFATE 4 MG/ML DISP.SYRIN. IV PRN ×5 (05:19→21:27)
[2016-06-16] MEDS: IV NORMAL SALINE 1000ML BAG 1,000 ML IV SCH ×2 (05:30→11:12)
[2016-06-16 05:58] LABS: BASO # 0.1 x10^3/uL (0.0-0.2); BASO % 1 % (0-3); EOS % 1 % (0-3); HEMATOCRIT 32.2 % (36.0-47.0); HEMOGLOBIN 11.1 g/dL (12.0-15.5); LYMPH # 3.6 x10^3/uL (1.0-4.8); LYMPH % 40 % (24-48); MEAN CORPUSCULAR HEMOGLOBIN 30 pg (25-35); MEAN CORPUSCULAR HGB CONC 35 g/dL (31-37); MEAN CORPUSCULAR VOLUME 88 fL (79-100); MONO % 7 % (0-9); NEUT % 51 % (31-73); PLATELET COUNT 209 x10^3/uL (140-400); RED BLOOD COUNT 3.67 x10^6/uL (3.50-5.40); RED CELL DISTRIBUTION WIDTH 13.1 % (11.5-14.5); WHITE BLOOD COUNT 8.9 x10^3/uL (4.0-11.0)
[2016-06-16 06:19] LABS: ALBUMIN 2.9 g/dL (3.4-5.0); ALBUMIN/GLOBULIN RATIO 1.1 (1.0-1.7); CALCIUM 8.4 mg/dL (8.5-10.1); CREATININE 0.5 mg/dL (0.6-1.0); POTASSIUM 3.6 mmol/L (3.5-5.1); TOTAL BILIRUBIN 0.1 mg/dL (0.2-1.0); TOTAL PROTEIN 5.6 g/dL (6.4-8.2)
[2016-06-16 07:00] VITALS: BP 148/92
[2016-06-16] MEDS: ALPRAZOLAM 1 MG TABLET PO SCH ×2 (08:50→21:26)
[2016-06-16] MEDS: PREGABALIN 75 MG CAPSULE PO SCH ×2 (08:50→21:27)
[2016-06-16] MEDS: FLUOXETINE HCL 20 MG CAPSULE PO SCH (08:50)
[2016-06-16] MEDS: PANTOPRAZOLE SODIUM IV 80 MG in IV NORMAL SALINE 100ML 100 ML IV SCH (08:51)
[2016-06-16] MEDS ORDERED: NON FORMULARY ITEM (Dextroamphetamine/Amphetamine (Adderall 10 Mg Tablet) 10 MG) PO SCH (09:00)
[2016-06-16] MEDS: DIPHENHYDRAMINE/ZINC ACETATE 2%/0.1% TOPICAL CREAM 28GM TUBE. TP SCH ×3 (09:01→21:00)
[2016-06-16 11:00] VITALS: BP 112/78
[2016-06-16] MEDS: ONDANSETRON ODT 4 MG TAB.RAPDIS PO PRN (11:18)
--- NOTE | 2016-06-16 13:14 | PDOC ---
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 NOt on any antibiotic NO bloody emesis today PLAN: dc iVF and protonix gtt Ff up derm consult MIght need skin biopsy Dw RN Vitals Vitals Vital Signs Date Time Temp Pulse Resp B/P Pulse Ox O2 Delivery O2 Flow Rate FiO2 06/16/16 11:00 98.8 83 20 112/78 99 Room Air 98.8 Physical Exam General: Cooperative (lethargic but responsds), mild distress (but lethargic) Abdomen: Normal bowel sounds, Soft Extremities: No clubbing, No edema, Normal pulses Skin: Other (diffuse pustular lesions, have been present for some time, but markedly worse and on bilateral thighs primarily, crusted, and painful) Labs LABS Laboratory Tests Test 06/16/16 05:05 06/16/16 05:25 White Blood Count 8.9x10^3/uL (4.0-11.0) Red Blood Count 3.67x10^6/uL (3.50-5.40) Hemoglobin 11.1g/dL (12.0-15.5) Hematocrit 32.2% (36.0-47.0) Mean Corpuscular Volume 88fL (79-100) Mean Corpuscular Hemoglobin 30pg (25-35) Mean Corpuscular Hemoglobin Concent 35g/dL (31-37) Red Cell Distribution Width 13.1% (11.5-14.5) Platelet Count 209x10^3/uL (140-400) Neutrophils (%) (Auto) 51% (31-73) Lymphocytes (%) (Auto) 40% (24-48) Monocytes (%) (Auto) 7% (0-9) Eosinophils (%) (Auto) 1% (0-3) Basophils (%) (Auto) 1% (0-3) Neutrophils # (Auto) 4.6x10^3uL (1.8-7.7) Lymphocytes # (Auto) 3.6x10^3/uL (1.0-4.8) Monocytes # (Auto) 0.6x10^3/uL (0.0-1.1) Eosinophils # (Auto) 0.1x10^3/uL (0.0-0.7) Basophils # (Auto) 0.1x10^3/uL (0.0-0.2) Sodium Level 142mmol/L (136-145) Potassium Level 3.6mmol/L (3.5-5.1) Chloride Level 108mmol/L (98-107) Carbon Dioxide Level 26mmol/L (21-32) Anion Gap 8 (6-14) Blood Urea Nitrogen 12mg/dL (7-20) Creatinine 0.5mg/dL (0.6-1.0) Estimated GFR (Cockcroft-Gault) 148.0 BUN/Creatinine Ratio 24 (6-20) Glucose Level 95mg/dL (70-99) Calcium Level 8.4mg/dL (8.5-10.1) Total Bilirubin 0.1mg/dL (0.2-1.0) Aspartate Amino Transf (AST/SGOT) 38U/L (15-37) Alanine Aminotransferase (ALT/SGPT) 35U/L (14-59) Alkaline Phosphatase 51U/L (46-116) Total Protein 5.6g/dL (6.4-8.2) Albumin 2.9g/dL (3.4-5.0) Albumin/Globulin Ratio 1.1 (1.0-1.7) Review of Systems Review of Systems all over pain, R habd pain from accident with food tray, no n/v/d Assessment and Plan Assessmemt and Plan Problems Medical Problems: (1) Abdominal pain Status: Acute (2) Leukocytosis Status: Acute (3) Leukocytosis Status: Acute (4) Multiple wounds of skin Status: Acute (5) Wounds, multiple Status: Acute Problems: Comment Review of Relevant I have reviewed the following items liang (where applicable) has been applied. Labs Laboratory Tests Test 06/14/16 23:15 06/15/16 01:27 06/15/16 02:00 06/15/16 09:45 White Blood Count 14.6x10^3/uL (4.0-11.0) 7.7x10^3/uL (4.0-11.0) Red Blood Count 4.52x10^6/uL (3.50-5.40) 4.06x10^6/uL (3.50-5.40) Hemoglobin 13.3g/dL (12.0-15.5) 12.1g/dL (12.0-15.5) Hematocrit 39.6% (36.0-47.0) 35.5% (36.0-47.0) Mean Corpuscular Volume 88fL (79-100) 87fL (79-100) Mean Corpuscular Hemoglobin 29pg (25-35) 30pg (25-35) Mean Corpuscular Hemoglobin Concent 34g/dL (31-37) 34g/dL (31-37) Red Cell Distribution Width 13.0% (11.5-14.5) 12.9% (11.5-14.5) Platelet Count 276x10^3/uL (140-400) 239x10^3/uL (140-400) Neutrophils (%) (Auto) 62% (31-73) 50% (31-73) Lymphocytes (%) (Auto) 30% (24-48) 42% (24-48) Monocytes (%) (Auto) 7% (0-9) 7% (0-9) Eosinophils (%) (Auto) 1% (0-3) 1% (0-3) Basophils (%) (Auto) 1% (0-3) 1% (0-3) Neutrophils # (Auto) 9.1x10^3uL (1.8-7.7) 3.8x10^3uL (1.8-7.7) Lymphocytes # (Auto) 4.3x10^3/uL (1.0-4.8) 3.2x10^3/uL (1.0-4.8) Monocytes # (Auto) 1.0x10^3/uL (0.0-1.1) 0.5x10^3/uL (0.0-1.1) Eosinophils # (Auto) 0.1x10^3/uL (0.0-0.7) 0.1x10^3/uL (0.0-0.7) Basophils # (Auto) 0.1x10^3/uL (0.0-0.2) 0.0x10^3/uL (0.0-0.2) Sodium Level 141mmol/L (136-145) 143mmol/L (136-145) Potassium Level 3.5mmol/L (3.5-5.1) 3.9mmol/L (3.5-5.1) Chloride Level 105mmol/L (98-107) 110mmol/L (98-107) Carbon Dioxide Level 27mmol/L (21-32) 25mmol/L (21-32) Anion Gap 9 (6-14) 8 (6-14) Blood Urea Nitrogen 11mg/dL (7-20) 8mg/dL (7-20) Creatinine 0.7mg/dL (0.6-1.0) 0.5mg/dL (0.6-1.0) Estimated GFR (Cockcroft-Gault) 100.4 148.0 BUN/Creatinine Ratio 16 (6-20) Glucose Level 97mg/dL (70-99) 88mg/dL (70-99) Calcium Level 9.2mg/dL (8.5-10.1) 8.4mg/dL (8.5-10.1) Total Bilirubin 0.2mg/dL (0.2-1.0) Aspartate Amino Transf (AST/SGOT) 24U/L (15-37) Alanine Aminotransferase (ALT/SGPT) 26U/L (14-59) Alkaline Phosphatase 64U/L (46-116) Total Protein 7.1g/dL (6.4-8.2) Albumin 4.0g/dL (3.4-5.0) Albumin/Globulin Ratio 1.3 (1.0-1.7) Lipase 95U/L (73-393) Urine Collection Type Unknown Urine Color Yellow Urine Clarity Cloudy Urine pH 7.5 Urine Specific [place] 1.025 Urine Protein Negativemg/dL (NEG-TRACE) Urine Glucose (UA) Negativemg/dL (NEG) Urine Ketones (Stick) Negativemg/dL (NEG) Urine Blood Large (NEG) Urine Nitrite Negative (NEG) Urine Bilirubin Negative (NEG) Urine Urobilinogen Dipstick 1.0mg/dL (0.2 mg/dL) Urine Leukocyte Esterase Small (NEG) Urine RBC Tntc/HPF (0-2) Urine WBC 5-10/HPF (0-4) Urine Squamous Epithelial Cells Few/LPF Urine Amorphous Sediment Present/HPF Urine Bacteria 0/HPF (0-FEW) Urine Mucus Slight/LPF Urine Opiates Screen Pos (NEG) Urine Methadone Screen Neg (NEG) Urine Barbiturates Neg (NEG) Urine Phencyclidine Screen Neg (NEG) Urine Amphetamine/Methamphetamine Pos (NEG) Urine Benzodiazepines Screen Pos (NEG) Urine Cocaine Screen Neg (NEG) Urine Cannabinoids Screen Pos (NEG) Urine Ethyl Alcohol Neg (NEG) Lactic Acid Level 0.3mmol/L (0.4-2.0) Test 06/15/16 12:55 06/16/16 05:05 06/16/16 05:25 White Blood Count 7.9x10^3/uL (4.0-11.0) 8.9x10^3/uL (4.0-11.0) Red Blood Count 4.03x10^6/uL (3.50-5.40) 3.67x10^6/uL (3.50-5.40) Hemoglobin 11.9g/dL (12.0-15.5) 11.1g/dL (12.0-15.5) Hematocrit 35.8% (36.0-47.0) 32.2% (36.0-47.0) Mean Corpuscular Volume 89fL (79-100) 88fL (79-100) Mean Corpuscular Hemoglobin 30pg (25-35) 30pg (25-35) Mean Corpuscular Hemoglobin Concent 33g/dL (31-37) 35g/dL (31-37) Red Cell Distribution Width 12.9% (11.5-14.5) 13.1% (11.5-14.5) Platelet Count 236x10^3/uL (140-400) 209x10^3/uL (140-400) Neutrophils (%) (Auto) 51% (31-73) Lymphocytes (%) (Auto) 40% (24-48) Monocytes (%) (Auto) 7% (0-9) Eosinophils (%) (Auto) 1% (0-3) Basophils (%) (Auto) 1% (0-3) Neutrophils # (Auto) 4.6x10^3uL (1.8-7.7) Lymphocytes # (Auto) 3.6x10^3/uL (1.0-4.8) Monocytes # (Auto) 0.6x10^3/uL (0.0-1.1) Eosinophils # (Auto) 0.1x10^3/uL (0.0-0.7) Basophils # (Auto) 0.1x10^3/uL (0.0-0.2) Sodium Level 142mmol/L (136-145) Potassium Level 3.6mmol/L (3.5-5.1) Chloride Level 108mmol/L (98-107) Carbon Dioxide Level 26mmol/L (21-32) Anion Gap 8 (6-14) Blood Urea Nitrogen 12mg/dL (7-20) Creatinine 0.5mg/dL (0.6-1.0) Estimated GFR (Cockcroft-Gault) 148.0 BUN/Creatinine Ratio 24 (6-20) Glucose Level 95mg/dL (70-99) Calcium Level 8.4mg/dL (8.5-10.1) Total Bilirubin 0.1mg/dL (0.2-1.0) Aspartate Amino Transf (AST/SGOT) 38U/L (15-37) Alanine Aminotransferase (ALT/SGPT) 35U/L (14-59) Alkaline Phosphatase 51U/L (46-116) Total Protein 5.6g/dL (6.4-8.2) Albumin 2.9g/dL (3.4-5.0) Albumin/Globulin Ratio 1.1 (1.0-1.7) Laboratory Tests Test 06/16/16 05:05 06/16/16 05:25 White Blood Count 8.9x10^3/uL (4.0-11.0) Red Blood Count 3.67x10^6/uL (3.50-5.40) Hemoglobin 11.1g/dL (12.0-15.5) Hematocrit 32.2% (36.0-47.0) Mean Corpuscular Volume 88fL (79-100) Mean Corpuscular Hemoglobin 30pg (25-35) Mean Corpuscular Hemoglobin Concent 35g/dL (31-37) Red Cell Distribution Width 13.1% (11.5-14.5) Platelet Count 209x10^3/uL (140-400) Neutrophils (%) (Auto) 51% (31-73) Lymphocytes (%) (Auto) 40% (24-48) Monocytes (%) (Auto) 7% (0-9) Eosinophils (%) (Auto) 1% (0-3) Basophils (%) (Auto) 1% (0-3) Neutrophils # (Auto) 4.6x10^3uL (1.8-7.7) Lymphocytes # (Auto) 3.6x10^3/uL (1.0-4.8) Monocytes # (Auto) 0.6x10^3/uL (0.0-1.1) Eosinophils # (Auto) 0.1x10^3/uL (0.0-0.7) Basophils # (Auto) 0.1x10^3/uL (0.0-0.2) Sodium Level 142mmol/L (136-145) Potassium Level 3.6mmol/L (3.5-5.1) Chloride Level 108mmol/L (98-107) Carbon Dioxide Level 26mmol/L (21-32) Anion Gap 8 (6-14) Blood Urea Nitrogen 12mg/dL (7-20) Creatinine 0.5mg/dL (0.6-1.0) Estimated GFR (Cockcroft-Gault) 148.0 BUN/Creatinine Ratio 24 (6-20) Glucose Level 95mg/dL (70-99) Calcium Level 8.4mg/dL (8.5-10.1) Total Bilirubin 0.1mg/dL (0.2-1.0) Aspartate Amino Transf (AST/SGOT) 38U/L (15-37) Alanine Aminotransferase (ALT/SGPT) 35U/L (14-59) Alkaline Phosphatase 51U/L (46-116) Total Protein 5.6g/dL (6.4-8.2) Albumin 2.9g/dL (3.4-5.0) Albumin/Globulin Ratio 1.1 (1.0-1.7) Microbiology 06/15/16 Blood Culture - Preliminary, Resulted NO GROWTH AFTER 1 DAY Medications Current Medications Sodium Chloride (Iv Sodium Chloride 0.9% 1000ml Bag) 1,000 ml @ 1,000 mls/hr Q1H IV Last administered on 06/14/16 00:08; Start 06/14/16 at 22:45; Stop at 23:45; Status DC Famotidine (Pepcid) 20 mg 1X ONCE IVP Last administered on 06/15/16 00:10; Start 06/14/16 at 23:45; Stop 06/14/16 at 23:46; Status DC Metoclopramide HCl (Reglan) 10 mg 1X ONCE IV Last administered on 06/15/16 00 :10; Start 06/14/16 at 23:45; Stop 06/14/16 at 23:46; Status DC Morphine Sulfate 4 mg 1X ONCE IV Last administered on 06/15/16 00:09; Start 06/14/16 at 23:45; Stop 06/14/16 at 23:46; Status DC Iohexol (Omnipaque 240 Mg/ml) 30 ml 1X ONCE PO Last administered on 06/15/16 00:57; Start 06/15/16 at 00:15; Stop 06/15/16 at 00:16; Status DC Iohexol (Omnipaque 300 Mg/ml) 75 ml 1X ONCE IV Last administered on 06/15/16 00:56; Start 06/15/16 at 00:15; Stop 06/15/16 at 00:16; Status DC Info (Do NOT chart on this entry -- for MONITORING) 1 each PRN DAILY PRN MC SEE COMMENTS; Start 06/15/16 at 00:15; Stop 06/17/16 at 00:14 Morphine Sulfate 4 mg 1X ONCE IV Last administered on 06/15/16 01:55; Start 06/15/16 at 01:45; Stop 06/15/16 at 01:46; Status DC Vancomycin HCl (Vanco Per Pharmacy) 1 each PRN DAILY PRN MC SEE COMMENTS Last administered on 06/15/16 03:36; Start 06/15/16 at 02:30; Stop 06/15/16 at 09:59 ; Status DC Ondansetron HCl (Zofran) 4 mg PRN Q8HRS PRN IV NAUSEA/VOMITING; Start 06/15/16 at 02:15; Stop 06/16/16 at 02:14; Status DC Morphine Sulfate 4 mg PRN Q2HR PRN IV PAIN Last administered on 06/15/16 14:10 ; Start 06/15/16 at 02:15; Stop 06/16/16 at 02:14; Status DC Acetaminophen 650 mg 650 mg PRN Q4HRS PRN PO FEVER; Start 06/15/16 at 02:15; Stop 06/16/16 at 02:14; Status DC Vancomycin HCl 2 gm/Sodium Chloride 500 ml @ 250 mls/hr 1X ONCE IV Last administered on 06/15/16 02:15; Start 06/15/16 at 02:30; Stop 06/15/16 at 09:59 ; Status DC Vancomycin HCl/ Sodium Chloride (Iv Sodium Chloride 0.9% 250ml) 250 ml @ 167 mls/hr Q8H IV ; Start 06/15/16 at 12:00; Stop 06/15/16 at 12:00; Status DC Vancomycin HCl 1 each 1X ONCE MC ; Start 06/16/16 at 03:30; Stop 06/16/16 at 03 :30; Status DC Alprazolam (Xanax) 1 mg BID PO Last administered on 06/16/16 08:50; Start at 10:00 Fluoxetine HCl (Prozac) 20 mg DAILY PO Last administered on 06/16/16 08:50; Start 06/15/16 at 10:00 Acetaminophen/ Hydrocodone Bitart (Lortab 10/325) 1 tab PRN Q6HRS PRN PO PAIN MILD TO MOD Last administered on 06/16/16 02:24; Start 06/15/16 at 09:15 Ondansetron HCl (Zofran Odt) 4 mg Q8HRS PRN PO nausea 1ST CHOICE Last administered on 06/16/16 11:18; Start 06/15/16 at 09:15 Tramadol HCl (Ultram) 50 mg PRN Q6HRS PRN PO pain Last administered on 04:44; Start 06/15/16 at 09:15 Trazodone HCl (Desyrel) 100 mg QHS PO ; Start 06/15/16 at 21:00 Albuterol Sulfate (Ventolin Neb Soln) 2.5 mg PRN Q4HRS PRN NEB SOA Last administered on 06/15/16 21:23; Start 06/15/16 at 09:30 Non-Formulary Medication 10 mg DAILY PO ; Start 06/16/16 at 09:00; Stop at 09:00; Status DC Pregabalin (Lyrica) 150 mg BID PO Last administered on 06/16/16 08:50; Start 06/15/16 at 10:00 Zolpidem Tartrate 5 mg 5 mg PRN QHS PRN PO INSOMNIA Last administered on 22:21; Start 06/15/16 at 09:30 Pantoprazole Sodium 80 mg/ Sodium Chloride 100 ml @ 10 mls/hr Q10H IV Last administered on 06/16/16 08:51; Start 06/15/16 at 10:00 Sodium Chloride (Iv Sodium Chloride 0.9% 1000ml Bag) 1,000 ml @ 150 mls/hr Q6H40M IV Last administered on 06/15/16 16:10; Start 06/15/16 at 09:30 Zinc Acetate/ Diphenhydramine (Benadryl Topical) 1 darin TID TP Last administered on 06/16/16 09:01; Start 06/15/16 at 14:00 Ketorolac Tromethamine (Toradol) 30 mg PRN Q6HRS PRN IV PAIN Last administered on 06/15/16 23:46; Start 06/15/16 at 23:30; Stop 06/20/16 at 23:29 Oxycodone/ Acetaminophen (Percocet 10/325) 1 tab PRN Q6HRS PRN PO PAIN Last administered on 06/15/16 23:39; Start 06/15/16 at 23:15 Morphine Sulfate 4 mg PRN Q2HR PRN IV PAIN Last administered on 06/16/16 09:00 ; Start 06/16/16 at 05:00 Active Scripts Active Reported Zolpidem Tartrate 10 Mg Tablet 1 Tab PO QHS Trazodone Hcl 100 Mg Tablet 1 Tab PO QHS Tramadol Hcl 50 Mg Tablet 1 Tab PO PRN Q6HRS Adderall 10 Mg Tablet (Dextroamphetamine/Amphetamine) 10 Mg Tablet 10 Mg PO DAILY Ondansetron Odt (Ondansetron) 4 Mg Tab.rapdis 1 Tab PO PRN Q6-8HRS Lyrica (Pregabalin) 150 Mg Capsule 1 Cap PO BID Hydrocodone-Apap 10-325 (Hydrocodone Bit/Acetaminophen) 1 Each Tablet 1 Tab PO PRN Q6HRS PRN Fluoxetine Hcl 20 Mg Capsule 1 Cap PO DAILY Alprazolam 1 Mg Tablet 1 Tab PO BID Proventil Hfa Inhaler (Albuterol Sulfate) 6.7 Gm Hfa.aer.ad 1 Puff IH PRN Q4HRS PRN Vitals/I & O Vital Sign - Last 24 Hours 06/15/16 06/15/16 06/15/16 06/15/16 14:40 15:00 19:05 20:00 Temp 97.5 98.4 97.5 98.4 Pulse 86 79 Resp 20 18 B/P 96/53 101/60 Pulse Ox 96 97 O2 Delivery Room Air Room Air Room Air Room Air 06/15/16 06/15/16 06/15/16 06/15/16 21:21 22:22 23:05 23:39 Temp 99.9 99.9 Pulse 86 Resp 16 20 16 B/P 102/60 Pulse Ox 98 97 O2 Delivery Room Air Room Air Room Air Room Air 06/16/16 06/16/16 06/16/16 06/16/16 00:40 02:24 03:05 03:24 Temp 98.1 98.1 Pulse 74 Resp 16 16 18 16 B/P 113/65 Pulse Ox 98 O2 Delivery Room Air Room Air Room Air 06/16/16 06/16/16 06/16/16 06/16/16 04:44 05:19 05:54 05:54 Resp 16 16 16 16 O2 Delivery Room Air Room Air Room Air 06/16/16 06/16/16 06/16/16 06/16/16 07:00 08:10 09:00 09:30 Temp 97.7 97.7 Pulse 95 Resp 20 B/P 148/92 Pulse Ox 97 O2 Delivery Room Air Room Air Room Air Room Air 06/16/16 11:00 Temp 98.8 98.8 Pulse 83 Resp 20 B/P 112/78 Pulse Ox 99 O2 Delivery Room Air Intake and Output 06/15/16 06/15/16 06/16/16 15:00 23:00 07:00 Intake Total 478 ml Balance 478 ml SHIRLEY GORDON MD Jun 16, 2016 13:14
[2016-06-16 15:00] VITALS: BP 122/74
[2016-06-16] MEDS: ALBUTEROL SULFATE 2.5 MG/3 ML NEBU. NEB PRN (16:06)
[2016-06-16 19:00] VITALS: BP 141/68
[2016-06-16] MEDS: traZODone 100 MG TABLET. PO SCH (21:00)
[2016-06-16] MEDS: ZOLPIDEM 5 MG TABLET. PO PRN (21:26)
[2016-06-16] MEDS: OXYCODONE/APAP 10/325 TABLET. PO PRN (22:58)
[2016-06-16 23:00] VITALS: BP 141/79
[2016-06-17 03:00] VITALS: BP 140/73
[2016-06-17] MEDS: ONDANSETRON ODT 4 MG TAB.RAPDIS PO PRN ×2 (03:36→22:23)
[2016-06-17 07:00] VITALS: BP 128/77
[2016-06-17] MEDS: ALPRAZOLAM 1 MG TABLET PO SCH ×3 (09:00→22:23)
[2016-06-17] MEDS: PREGABALIN 75 MG CAPSULE PO SCH ×3 (09:00→21:00)
[2016-06-17] MEDS: FLUOXETINE HCL 20 MG CAPSULE PO SCH ×2 (09:00→12:47)
[2016-06-17] MEDS: DIPHENHYDRAMINE/ZINC ACETATE 2%/0.1% TOPICAL CREAM 28GM TUBE. TP SCH ×3 (09:00→21:00)
[2016-06-17 11:00] VITALS: BP 105/63
--- NOTE | 2016-06-17 12:26 | PDOC ---
PROGRESS NOTES Chief Complaint Chief Complaint Diffuse pustular rash, clinically no infection per iD Leukocytosis, SIRS, fibromyalgia, diffuse pain anxiety disorder w/ insomnia fatty liver disease Hx stent to left renal vein History of Present Illness History of Present Illness Somnolent this AM, got morphine last night Asks for morphine RTC PLanned for skin biopsy today by derm EARLIER ENTRY (Saturday) Quite dramatic today Lesions reviewed in chart pictures and also seen with the patient showing me all her lesions [place] has not seen NOt pruritic No infection per ID As per staff, requests for IV morphine Pt does not work, only person in household with the lesions Denies outdoor activity LEsions started Nov 2015 - 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 NOt on any antibiotic NO bloody emesis today PLAN: dc iVF and protonix gtt Address morphine dose/.freq skin biopsy planned for today Dw RN Vitals Vitals Vital Signs Date Time Temp Pulse Resp B/P Pulse Ox O2 Delivery O2 Flow Rate FiO2 06/17/16 11:00 97.1 80 16 105/63 95 Room Air 97.1 Physical Exam General: Cooperative (lethargic but responsds), mild distress (but lethargic) Abdomen: Normal bowel sounds, Soft Extremities: No clubbing, No edema, Normal pulses Skin: Other (diffuse pustular lesions, have been present for some time, but markedly worse and on bilateral thighs primarily, crusted, and painful) Review of Systems Review of Systems dramatic, somnolent, no emesis, CP, sob Assessment and Plan Assessmemt and Plan Problems Medical Problems: (1) Abdominal pain Status: Acute (2) Leukocytosis Status: Acute (3) Leukocytosis Status: Acute (4) Multiple wounds of skin Status: Acute (5) Wounds, multiple Status: Acute Problems: Comment Review of Relevant I have reviewed the following items liang (where applicable) has been applied. Labs Laboratory Tests Test 06/15/16 12:55 06/16/16 05:05 06/16/16 05:25 White Blood Count 7.9x10^3/uL (4.0-11.0) 8.9x10^3/uL (4.0-11.0) Red Blood Count 4.03x10^6/uL (3.50-5.40) 3.67x10^6/uL (3.50-5.40) Hemoglobin 11.9g/dL (12.0-15.5) 11.1g/dL (12.0-15.5) Hematocrit 35.8% (36.0-47.0) 32.2% (36.0-47.0) Mean Corpuscular Volume 89fL (79-100) 88fL (79-100) Mean Corpuscular Hemoglobin 30pg (25-35) 30pg (25-35) Mean Corpuscular Hemoglobin Concent 33g/dL (31-37) 35g/dL (31-37) Red Cell Distribution Width 12.9% (11.5-14.5) 13.1% (11.5-14.5) Platelet Count 236x10^3/uL (140-400) 209x10^3/uL (140-400) Neutrophils (%) (Auto) 51% (31-73) Lymphocytes (%) (Auto) 40% (24-48) Monocytes (%) (Auto) 7% (0-9) Eosinophils (%) (Auto) 1% (0-3) Basophils (%) (Auto) 1% (0-3) Neutrophils # (Auto) 4.6x10^3uL (1.8-7.7) Lymphocytes # (Auto) 3.6x10^3/uL (1.0-4.8) Monocytes # (Auto) 0.6x10^3/uL (0.0-1.1) Eosinophils # (Auto) 0.1x10^3/uL (0.0-0.7) Basophils # (Auto) 0.1x10^3/uL (0.0-0.2) Sodium Level 142mmol/L (136-145) Potassium Level 3.6mmol/L (3.5-5.1) Chloride Level 108mmol/L (98-107) Carbon Dioxide Level 26mmol/L (21-32) Anion Gap 8 (6-14) Blood Urea Nitrogen 12mg/dL (7-20) Creatinine 0.5mg/dL (0.6-1.0) Estimated GFR (Cockcroft-Gault) 148.0 BUN/Creatinine Ratio 24 (6-20) Glucose Level 95mg/dL (70-99) Calcium Level 8.4mg/dL (8.5-10.1) Total Bilirubin 0.1mg/dL (0.2-1.0) Aspartate Amino Transf (AST/SGOT) 38U/L (15-37) Alanine Aminotransferase (ALT/SGPT) 35U/L (14-59) Alkaline Phosphatase 51U/L (46-116) Total Protein 5.6g/dL (6.4-8.2) Albumin 2.9g/dL (3.4-5.0) Albumin/Globulin Ratio 1.1 (1.0-1.7) Microbiology 06/15/16 Blood Culture - Preliminary, Resulted NO GROWTH AFTER 2 DAYS 06/15/16 Urine Culture - Preliminary, Resulted 06/15/16 Urine Culture Result 1 (CRISTIAN) - Preliminary, Resulted Medications Current Medications Sodium Chloride (Iv Sodium Chloride 0.9% 1000ml Bag) 1,000 ml @ 1,000 mls/hr Q1H IV Last administered on 06/14/16 00:08; Start 06/14/16 at 22:45; Stop at 23:45; Status DC Famotidine (Pepcid) 20 mg 1X ONCE IVP Last administered on 06/15/16 00:10; Start 06/14/16 at 23:45; Stop 06/14/16 at 23:46; Status DC Metoclopramide HCl (Reglan) 10 mg 1X ONCE IV Last administered on 06/15/16 00 :10; Start 06/14/16 at 23:45; Stop 06/14/16 at 23:46; Status DC Morphine Sulfate 4 mg 1X ONCE IV Last administered on 06/15/16 00:09; Start 06/14/16 at 23:45; Stop 06/14/16 at 23:46; Status DC Iohexol (Omnipaque 240 Mg/ml) 30 ml 1X ONCE PO Last administered on 06/15/16 00:57; Start 06/15/16 at 00:15; Stop 06/15/16 at 00:16; Status DC Iohexol (Omnipaque 300 Mg/ml) 75 ml 1X ONCE IV Last administered on 06/15/16 00:56; Start 06/15/16 at 00:15; Stop 06/15/16 at 00:16; Status DC Info (Do NOT chart on this entry -- for MONITORING) 1 each PRN DAILY PRN MC SEE COMMENTS; Start 06/15/16 at 00:15; Stop 06/17/16 at 00:14; Status DC Morphine Sulfate 4 mg 1X ONCE IV Last administered on 06/15/16 01:55; Start 06/15/16 at 01:45; Stop 06/15/16 at 01:46; Status DC Vancomycin HCl (Vanco Per Pharmacy) 1 each PRN DAILY PRN MC SEE COMMENTS Last administered on 06/15/16 03:36; Start 06/15/16 at 02:30; Stop 06/15/16 at 09:59 ; Status DC Ondansetron HCl (Zofran) 4 mg PRN Q8HRS PRN IV NAUSEA/VOMITING; Start 06/15/16 at 02:15; Stop 06/16/16 at 02:14; Status DC Morphine Sulfate 4 mg PRN Q2HR PRN IV PAIN Last administered on 06/15/16 14:10 ; Start 06/15/16 at 02:15; Stop 06/16/16 at 02:14; Status DC Acetaminophen 650 mg 650 mg PRN Q4HRS PRN PO FEVER; Start 06/15/16 at 02:15; Stop 06/16/16 at 02:14; Status DC Vancomycin HCl 2 gm/Sodium Chloride 500 ml @ 250 mls/hr 1X ONCE IV Last administered on 06/15/16 02:15; Start 06/15/16 at 02:30; Stop 06/15/16 at 09:59 ; Status DC Vancomycin HCl/ Sodium Chloride (Iv Sodium Chloride 0.9% 250ml) 250 ml @ 167 mls/hr Q8H IV ; Start 06/15/16 at 12:00; Stop 06/15/16 at 12:00; Status DC Vancomycin HCl 1 each 1X ONCE MC ; Start 06/16/16 at 03:30; Stop 06/16/16 at 03 :30; Status DC Alprazolam (Xanax) 1 mg BID PO Last administered on 06/16/16 21:26; Start at 10:00 Fluoxetine HCl (Prozac) 20 mg DAILY PO Last administered on 06/16/16 08:50; Start 06/15/16 at 10:00 Acetaminophen/ Hydrocodone Bitart (Lortab 10/325) 1 tab PRN Q6HRS PRN PO PAIN MILD TO MOD Last administered on 06/16/16 02:24; Start 06/15/16 at 09:15 Ondansetron HCl (Zofran Odt) 4 mg Q8HRS PRN PO nausea 1ST CHOICE Last administered on 06/17/16 03:36; Start 06/15/16 at 09:15 Tramadol HCl (Ultram) 50 mg PRN Q6HRS PRN PO pain Last administered on 04:44; Start 06/15/16 at 09:15 Trazodone HCl (Desyrel) 100 mg QHS PO ; Start 06/15/16 at 21:00 Albuterol Sulfate (Ventolin Neb Soln) 2.5 mg PRN Q4HRS PRN NEB SOA Last administered on 06/16/16 16:06; Start 06/15/16 at 09:30 Non-Formulary Medication 10 mg DAILY PO ; Start 06/16/16 at 09:00; Stop at 09:00; Status DC Pregabalin (Lyrica) 150 mg BID PO Last administered on 06/16/16 21:27; Start 06/15/16 at 10:00 Zolpidem Tartrate 5 mg 5 mg PRN QHS PRN PO INSOMNIA Last administered on 21:26; Start 06/15/16 at 09:30 Pantoprazole Sodium 80 mg/ Sodium Chloride 100 ml @ 10 mls/hr Q10H IV Last administered on 06/16/16 08:51; Start 06/15/16 at 10:00; Stop 06/16/16 at 13:13 ; Status DC Sodium Chloride (Iv Sodium Chloride 0.9% 1000ml Bag) 1,000 ml @ 150 mls/hr Q6H40M IV Last administered on 06/15/16 16:10; Start 06/15/16 at 09:30; Stop 06/16/16 at 13:13; Status DC Zinc Acetate/ Diphenhydramine (Benadryl Topical) 1 darin TID TP Last administered on 06/16/16 09:01; Start 06/15/16 at 14:00 Ketorolac Tromethamine (Toradol) 30 mg PRN Q6HRS PRN IV PAIN Last administered on 06/15/16 23:46; Start 06/15/16 at 23:30; Stop 06/20/16 at 23:29 Oxycodone/ Acetaminophen (Percocet 10/325) 1 tab PRN Q6HRS PRN PO PAIN Last administered on 06/16/16 22:58; Start 06/15/16 at 23:15 Morphine Sulfate 4 mg PRN Q2HR PRN IV PAIN Last administered on 06/16/16 21:27 ; Start 06/16/16 at 05:00 Active Scripts Active Reported Zolpidem Tartrate 10 Mg Tablet 1 Tab PO QHS Trazodone Hcl 100 Mg Tablet 1 Tab PO QHS Tramadol Hcl 50 Mg Tablet 1 Tab PO PRN Q6HRS Adderall 10 Mg Tablet (Dextroamphetamine/Amphetamine) 10 Mg Tablet 10 Mg PO DAILY Ondansetron Odt (Ondansetron) 4 Mg Tab.rapdis 1 Tab PO PRN Q6-8HRS Lyrica (Pregabalin) 150 Mg Capsule 1 Cap PO BID Hydrocodone-Apap 10-325 (Hydrocodone Bit/Acetaminophen) 1 Each Tablet 1 Tab PO PRN Q6HRS PRN Fluoxetine Hcl 20 Mg Capsule 1 Cap PO DAILY Alprazolam 1 Mg Tablet 1 Tab PO BID Proventil Hfa Inhaler (Albuterol Sulfate) 6.7 Gm Hfa.aer.ad 1 Puff IH PRN Q4HRS PRN Vitals/I & O Vital Sign - Last 24 Hours 06/16/16 06/16/16 06/16/16 06/16/16 13:18 15:00 16:07 17:20 Temp 98.6 98.6 Pulse 92 Resp 20 B/P 122/74 Pulse Ox 96 100 O2 Delivery Room Air Room Air Room Air Room Air 06/16/16 06/16/16 06/16/16 06/16/16 17:51 19:00 20:30 21:27 Temp 97.9 97.9 Pulse 102 Resp 20 B/P 141/68 Pulse Ox 94 O2 Delivery Room Air Room Air Room Air Room Air 06/16/16 06/16/16 06/17/16 06/17/16 22:58 23:00 00:00 03:00 Temp 97.9 97.7 97.9 97.7 Pulse 93 100 Resp 18 18 18 B/P 141/79 140/73 Pulse Ox 96 98 O2 Delivery Room Air Room Air Room Air 06/17/16 06/17/16 07:00 11:00 Temp 98.2 97.1 98.2 97.1 Pulse 75 80 Resp 20 16 B/P 128/77 105/63 Pulse Ox 96 95 O2 Delivery Room Air Room Air Intake and Output 06/16/16 06/16/16 06/17/16 15:00 23:00 07:00 Intake Total 0 ml Balance 0 ml SHIRLEY GORDON MD Jun 17, 2016 12:26
[2016-06-17] MEDS: OXYCODONE/APAP 10/325 TABLET. PO PRN ×2 (12:47→22:25)
[2016-06-17] MEDS: MORPHINE SULFATE 2 MG/ML DISP.SYRIN. IV PRN ×3 (14:04→23:14)
--- NOTE | 2016-06-17 14:09 | PDOC ---
SUBJECTIVE Subjective Fairly complicated(and not very coherent) story. Patient describes months of various skin lesions. Months ago (early fall) bagan as a "bugs crawling all over" sensation. Was treated for scabies without benefit. More recently skin feels painful, "like a b-b gun is shooting" at her skin. and claims that it can interfere with sleep. When asked what she has tried to make it more comfortable she is vague - Bacitracin, Calamine, Silver cream. When asked to describe the evolution of any lesion she states that they begin as a "scar", became crusty (without picking at them) and resolve only to recur at the same sites. She showed me the "original lesion" right medial upper thigh which appeared to be linear atrophic macules. She notices "strings" or "circles" in the lesions. Her boyfriend has heard of "morgellon's disease" but the patient volunteered that she thinks that doctors don't believe in that as being genuine disease. I asked her if any of her meds may be involved (she volunteered the Lyrica and her boyfriend volunteered Prozac) Patient is on a myriad meds including opioids for pain, Lyrica, Adderoll, Tramdol sleeping meds OBJECTIVE Vital Signs Vital Signs Date Time Temp Pulse Resp B/P Pulse Ox O2 Delivery O2 Flow Rate FiO2 06/17/16 11:00 97.1 80 16 105/63 95 Room Air 97.1 06/17/16 07:00 98.2 75 20 128/77 96 Room Air 98.2 06/17/16 03:00 97.7 100 18 140/73 98 Room Air 97.7 06/17/16 00:00 Room Air 06/16/16 23:00 97.9 93 18 141/79 96 Room Air 97.9 06/16/16 22:58 18 06/16/16 21:27 Room Air 06/16/16 20:30 Room Air 06/16/16 19:00 97.9 102 20 141/68 94 Room Air 97.9 06/16/16 17:51 Room Air 06/16/16 17:20 Room Air 06/16/16 16:07 100 Room Air 06/16/16 15:00 98.6 92 20 122/74 96 Room Air 98.6 I & O Intake and Output 06/17/16 07:00 Intake Total 0 ml Balance 0 ml Intake Oral 0 ml # Voids 4 PHYSICAL EXAM Physical Exam erosins of various sizes configurations and stages of healing. no primary lesions noted. Left volar arm more involved than right (which is to be expected from a right handed person). Hands and feet and most of back are clear. erosions noted on face, neck, chest, buttocks thighs and arms. ASSESSMENT/PLAN Assessment/Plan Challenging problem. Pattern of lesions not consistent with "primary" dermatologic disease. Patient is convinced that it is so it would be impossible to challenge that belief. My impression that her polypharmacy is contributing to this. She describes significant stesses at home including 7 year old twins both with forms of autism. I asked about parent support and got the sense there wasn't much of that. Patient has longstanding relationship with some of her doctors but I get the sense that they are not all on the same page regarding her meds. Will request nursing to get MRSA culture from nares. Skin biopsy done Problems: GABE DEUTSCH MD Jun 17, 2016 14:09
[2016-06-17 15:00] VITALS: BP 123/89
--- NOTE | 2016-06-17 17:09 | OP ---
DATE OF SURGERY: 06/17/2016 PROCEDURE: Skin biopsy. DESCRIPTION OF PROCEDURE: After informed signed consent, prepped with Betadine. Local 1% lidocaine with epinephrine. Shave biopsy of skin lesion, left upper chest. Sent to Pathology. Drysol hemostasis. Antibiotic ointment and Band-Aid. Orders written. GABE DEUTSCH MD DR: HARRIS/tad JOB#: [id number] / [id number]
[2016-06-17 19:30] VITALS: BP 117/58
[2016-06-17] MEDS: traZODone 100 MG TABLET. PO SCH (21:00)
[2016-06-17] MEDS: MUPIROCIN 2 % TOPICAL CREAM 15GM TUBE. TP SCH (22:23)
[2016-06-17] MEDS: ZOLPIDEM 5 MG TABLET. PO PRN (22:29)
[2016-06-17] MEDS: ALBUTEROL SULFATE 2.5 MG/3 ML NEBU. NEB PRN (23:13)
[2016-06-17 23:29] VITALS: BP 134/91
[2016-06-18 03:29] VITALS: BP 133/88
[2016-06-18 07:00] VITALS: BP 124/78
[2016-06-18] MEDS: ALPRAZOLAM 1 MG TABLET PO SCH (08:43)
[2016-06-18] MEDS: PREGABALIN 75 MG CAPSULE PO SCH (08:46)
[2016-06-18] MEDS: OXYCODONE/APAP 10/325 TABLET. PO PRN (08:54)
[2016-06-18] MEDS: DIPHENHYDRAMINE/ZINC ACETATE 2%/0.1% TOPICAL CREAM 28GM TUBE. TP SCH ×2 (08:55→14:00)
[2016-06-18] MEDS: MUPIROCIN 2 % TOPICAL CREAM 15GM TUBE. TP SCH ×2 (08:59→14:00)
[2016-06-18 11:00] VITALS: BP 121/79
--- NOTE | 2016-06-18 14:36 | PDOC ---
Subjective: Subjective: Upset. Says came for help with back pain, wants to DC but concerned she won't be able to see PCP right away, needs pain pills. Says vomited blood the night before last maybe. Eating okay. Objective: Objective: Difficult interview - she is upset/anxious, bed covered in belongings, at first fixated on taking a picture of the tv w/ her tablet, difficult to have any type of meaningful conversation. Per RN - no GI concerns, DC today. Reviewed other notes. Vital Signs: Vital Signs Date Time Temp Pulse Resp B/P Pulse Ox O2 Delivery O2 Flow Rate FiO2 06/18/16 13:12 99 Room Air 06/18/16 11:00 98.8 96 20 121/79 98.8 Labs: Laboratory Tests Test 06/17/16 19:30 Nasal Screen MRSA (PCR) Negative PE: GEN: anxious ABD: NABS, S/ND/NT NEURO/PSYCH: A & O 3, anxious, seems like attempting to cry OTHER: significant other and RN present A/P: ?hematemesis - none witnessed -labs remained stable Skin lesions -s/p skin biopsy this morning w/ derm Psych issues -- DC okay per GI. MIKAELA PRO Jun 18, 2016 14:36
--- NOTE | 2016-06-18 20:47 | DS ---
DATE OF DISCHARGE: 06/18/2016 DISCHARGE DIAGNOSES: 1. Diffuse pustular rash, no obvious infection as per Infectious Disease. 2. Status post biopsy by Dermatology and biopsy results pending. 3. Leukocytosis, resolving. 4. Fibromyalgia. 5. Anxiety with insomnia. 6. Fatty liver disease. BRIEF HOSPITAL COURSE: A 25-year-old female admitted to the hospital on 06/15/2016 for diffuse skin rash. She was evaluated by Infectious Disease and Dermatology. She was initially started on IV antibiotics. Later, antibiotics have been discontinued as the patient's WBC has been improving and no signs of obvious infection seen. The patient complains of severe pain which may be due to fibromyalgia and she was on several narcotics at home; however, at this time, she was requesting several narcotics, but I did discharge her only on hydrocodone and the patient has been advised to see her primary doctor in a couple of days. The patient was evaluated by Dermatology and her biopsy results were pending and she was sent home with oral bacitracin. At the time of discharge, she is in a stable condition and verbalized understanding of her condition. DISCHARGE EXAMINATION: GENERAL: Alert, oriented x 3, anxious. HEART: S1, S2 present. LUNGS: Anterior chest clear. ABDOMEN: Soft, nontender, no organomegaly. EXTREMITIES: No edema. SKIN: Diffuse healing rash present on the upper and lower extremities . DISCHARGE DISPOSITION: Home. DISCHARGE CONDITION: Stable. PROGNOSIS: Guarded. FOLLOWUP: With the primary care doctor and Dr. Murphy in 1-2 weeks. MEDICATIONS: Reviewed and reconciled. Please see MRAD. Total time spent for discharge is 31 minutes for patient education, counseling, and coordination of care. CAMILO IBARRA MD DR: AI/tad JOB#: [id number] / [id number]
--- NOTE | 2016-06-20 16:57 | PATHOLOGY ---
PATHOLOGY REPORT * * * * * * * * FINAL DIAGNOSIS: Skin fragments, left chest: - Ulceration with exuberant scale crust, fragmented. (See comment) COMMENT: The fragments submitted show extensive ulceration with overlying scale crust. Bacterial colonies are readily identified on H and E stained sections within the crust. A PAS-D stain for fungus was performed and is negative. With the extensive ulceration and neutrophilic scale crust, a definitive diagnosis cannot be rendered. Scabetic mites or their fecal/egg material are not identified within the fragments examined. These areas appear to be physically traumatized (scratched). It is difficult to pinpoint the underlying etiology. It may represent traumatized eczematous dermatitis, impetigo, pustular drug, a possible underlying suppurative folliculitis versus a neurotic excoriation. Please correlate with clinical history. (SAS:[facility]; d/t: 06/20/2016) Special stains: PAS-DF: negative REPORT ELECTRONICALLY SIGNED BY: Suly Gifford M.D., Dermatopathologist DATE/TIME: 06/20/2016 16:24 * * * * * * * * GROSS PATHOLOGY: Received in formalin labeled "Radha Díaz," and additionally labeled on the requisition as, "L chest". Received is a 1.0 x 0.7 x 0.1 cm aggregate of curettings which are entirely submitted in cassette A1. (CAA; 06/18/2016) INITIAL CPT CODE(S): A; 18943, 90665 Professional services performed by [facility] [employer], [address] [place] [address]. Technical services performed by [facility] [employer] at [address] [place] [address]. SPECIMEN(S) RECEIVED: A.Shave biposy skin left chest CLINICAL HISTORY: Long history skin erosions, no primary lesions, probably neurogenic PATIENT: MANSOOR DÍAZ /AGE: 508/17/1990 (Age: 25) PATIENT #: [id number] ALT CASE #: SPECIMEN COLLECTION DATE: 06/17/2016 SPECIMEN RECEIVED DATE: 06/18/2016 [facility] - [address] [place] [address] - PHONE: [phone] * * * END OF REPORT * * *
== END 2016-06-18 15:45 | disposition home or self-care (01) | DRG 607 ==
LOC: ER 22:21 → 4 NORTH 06-15 02:07
PROVIDERS: ADMIT Internal Medicine; ATTEND Internal Medicine
PROC: 0HB5XZX Excision of Chest Skin, External Approach, Diagnostic (ICD-10-PCS; principal; 2016-06-17)
DX: R21 Rash and other nonspecific skin eruption (principal); K92.0 Hematemesis; R65.10 Systemic inflammatory response syndrome (SIRS) of non-infectious origin without acute organ dysfunction; L98.9 Disorder of the skin and subcutaneous tissue, unspecified; F32.9 Major depressive disorder, single episode, unspecified; F41.9 Anxiety disorder, unspecified; D72.829 Elevated white blood cell count, unspecified; G43.909 Migraine, unspecified, not intractable, without status migrainosus; M19.90 Unspecified osteoarthritis, unspecified site; F90.9 Attention-deficit hyperactivity disorder, unspecified type; G47.00 Insomnia, unspecified; G47.33 Obstructive sleep apnea (adult) (pediatric); G62.9 Polyneuropathy, unspecified; K21.9 Gastro-esophageal reflux disease without esophagitis; K75.81 Nonalcoholic steatohepatitis (NASH); M06.9 Rheumatoid arthritis, unspecified; M79.7 Fibromyalgia; Z80.0 Family history of malignant neoplasm of digestive organs; Z90.710 Acquired absence of both cervix and uterus; Z88.8 Allergy status to other drugs, medicaments and biological substances
CPT/HCPCS: 36415; 74177; 80048; 80053; 81001; 83605; 83690; 85027; 87040; 87086; 87641; 94640; 94760; 96360; C9113; G0481; J1885; J2270; J2765; J3370; J7030; J7040; Q0162; Q9966; Q9967; S0028; 99285-25